=== PATIENT | female | born 1950 | race Caucasian/White ===

== ENCOUNTER → 2016-06-15 | Outpatient (CLI) | payer BC ==
--- NOTE | ~2016-06-15 | MY6 ---
[facility] A Service of [facility] RADIOLOGY TEXT RESULTS PATIENT: ZORA CUBA LOCATION: [facility] : 54 UNIT #: [id number] AGE: [address]: MEDINA JARAMILLO MD SEX: F ORDER DR: [id number] [facility] [address] [place], [place] [address] [id number] MR#: [id number] Acc #: [id number] NAME: ZORA CUBA : 1950 SEX: F STUDY DATE/TIME: 06/15/2016 14:44 UNIT: [facility] ROOM: STUDY DESCRIPTION: MY Mammogram Dx Dig Pete Attending Physician: Medina Jaramillo M.D. Referring Physician: Medina Jaramillo M.D. Ordering Physician: Medina Jaramillo M.D. Primary Care Physician: Medina Jaramillo M.D. MEDICAL IMAGING REPORT This report is preliminary unless electronic signature is present EXAM Screening mammogram, 06/15. INDICATION 65 -year-old with no personal history but a positive family history of breast cancer. No current complaints. FINDINGS Routine digital screening views of both breasts were obtained. Study is reviewed with an FDA-approved CAD device. Comparison is made with 12/30/2014 and 11/19/2013. Breast parenchyma shows scattered fibroglandular densities. No masses or suspicious microcalcifications are seen. IMPRESSION Negative mammogram. Routine screen in 1 year recommended. Patients over the age of 40 are entered into a reminder system with target due date for the next mammogram. A result letter will also be sent to the patient. BIRADS: 1 Negative Dictated by... Ian Weber Jr., M.D. THIS IS AN ELECTRONICALLY VERIFIED REPORT Ian Weber Jr., M.D. at 06/16/2016 10:13 AM CALLI/yelena [facility] A Service of [facility] RADIOLOGY TEXT RESULTS PATIENT: ZORA CUBA LOCATION: [facility] : 54 UNIT #: [id number] AGE: [address]: MEDINA JARAMILLO MD SEX: F ORDER DR: TD: 06/15/2016 16:35 JOB #: [id number] MEDICAL IMAGING REPORT Page 1 of 1 COPY
== END | disposition home or self-care (01) ==
LOC: CWCC 13:56
DX: Z12.31 Encounter for screening mammogram for malignant neoplasm of breast (principal); Z80.3 Family history of malignant neoplasm of breast
CPT/HCPCS: G0202